=== PATIENT | male | born 1935 ===

== ENCOUNTER 2024-09-10 13:36 | Emergency (ER) | payer OTHER ==
[2024-09-10] MEDS ORDERED: LIDOCAINE 2% W/EPI 1:200,000 MPF 20 ML VIAL IM ONE (15:30)
[2024-09-10] MEDS ORDERED: TDAP (DIPHTH,PERTUSS(ACELL),TET VAC) 0.5 ML VIAL IMVAC ONE (15:31)
--- NOTE | 2024-09-10 15:31 | RAD REPORT ---
EXAM: CT Head Brain Wo Cont HISTORY: head injury COMPARISON: None TECHNIQUE: Multiple contiguous axial images were obtained for a CT of the brain without contrast. Sag ittal and coronal reformats were performed. One or more of the following dose reduction techniques were used: Automated exposure control, adjus tment of the mA and kV according to patient size, and iterative reconstruction. Unless otherwise specified, incidental findings do not require dedicated imaging follow-up. FINDINGS: No evidence of hydrocephalus, intracranial hemorrhage, or extra-axial fluid collection. Mild brain atrophy with mild periventricular and deep white matter chronic microvascular ischemic ch anges present. The calvarium is intact. Left frontal scalp swelling and hematoma. The visualized paranasal sinuses a nd mastoid air cells are essentially clear. IMPRESSION: No evidence of acute intracranial abnormality. Left frontal scalp swelling and hematoma.
--- NOTE | 2024-09-10 15:56 | ER ---
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 abrasions to left me1 forehead and cheek and left nare, bilateral palms of hands and feet. No LOC. c/o pain 2/10. Coronavirus screen: Vaccine status: Patient reports receiving the 2nd dose of the covid vaccine. Ebola Screen: No symptoms or risks identified at this time. Initial Sepsis Screen: Does the patient meet any 2 criteria? No. Patient's initial sepsis screen is negative. Does the patient have a suspected source of infection? No. Patient's initial sepsis screen is negative. Risk Assessment: Do you want to hurt yourself or someone else? Patient reports no desire to harm self or others. Onset of symptoms was September 10, 2024 at 13:30. 13:55 [place] [facility] Acuity: YANIQUE 3 me1 Historical: - Allergies: 13:59 No Known Allergies; me1 - PMHx: 13:59 Diabetes mellitus; Hypertensive disorder; enlarged prostate; me1 - PSHx: 13:59 cataract surgery bilateral; me1 - Immunization history:: Last tetanus immunization: > 10 years ago. - Infectious Disease History:: Denies. - Social history:: Smoking status: Patient/guardian denies using tobacco, but has a distant history of tobacco abuse. Vital Signs: 13:55 BP 130 / 64; Pulse 96; Resp 18; Temp 98.6; Pulse Ox 98.6% ; Weight 88.45 kg; Height 5 me1 ft. 9 in. ; Pain 2/10; 13:55 Body Mass Index 28.80 (88.45 kg, 175.26 cm) me1 13:55 Pain Scale: Adult nh1 ED Course: 13:42 Patient arrived in ED. cj3 13:46 Gaston Ornelas MD is Attending Physician. ec2 13:59 Triage completed. me1 13:59 Arm band placed on Patient placed in waiting room. me1 14:12 CT Head Brain wo Cont In Process Unspecified. EDMS 15:39 Val Kilgore, RN is Primary Nurse. iw Administered Medications: 15:30 Drug: Lidocaine-Epinephrine Infiltration -2 % (1:100,000) 10 ml Infiltration once; to iw bedside Route: Infiltration; 16:00 Drug: Boostrix Tdap IM 0.5 ml IM once; as a single dose Route: IM; Site: left deltoid; iw 16:15 Follow up: Response: No adverse reaction iw Outcome: 15:56 Discharge ordered by . ec2 16:41 Patient left the ED. iw Signatures: Dispatcher [employer] Val Dempsey, RN RN iw Denia Chau RN RN me1 Gaston Ornelas MD MD ec2 Jenny Tolentino 3
--- NOTE | 2024-09-10 15:56 | EDPHYS ---
Physician Documentation [facility] Name: Wes Rodriguez Age: 89 yrs Sex: Male : 1935 Arrival Date: 09/10/2024 Time: 13:36 Bed 25 Private MD: ED Physician Gaston Ornelas HPI: 09/10 14:01 This 89 yrs old Male presents to ER via Ambulatory with complaints of Fall ec2 Injury. 14:01 Patient arrives today for evaluation after a ground-level fall. Patient had fallen and ec2 injured his left face, sustained a laceration. No LOC, no blood thinners. Unsure of last tetanus shot.. Historical: - Allergies: 13:59 No Known Allergies; me1 - PMHx: 13:59 Diabetes mellitus; Hypertensive disorder; enlarged prostate; me1 - PSHx: 13:59 cataract surgery bilateral; me1 - Immunization history:: Last tetanus immunization: > 10 years ago. - Infectious Disease History:: Denies. - Social history:: Smoking status: Patient/guardian denies using tobacco, but has a distant history of tobacco abuse. ROS: 14:01 Constitutional: as per hpi ec2 Exam: 14:01 Constitutional: GEN: NAD Head: atraumatic Eyes: EOMI Ears: External ears are ec2 normal. CV: regular rate LUNGS: no respiratory distress ABD: non-distended SKIN: 2 cm laceration to the left upper eyebrow, half centimeter laceration to the left cheek MSK: no evidence of trauma Vital Signs: 13:55 BP 130 / 64; Pulse 96; Resp 18; Temp 98.6; Pulse Ox 98.6% ; Weight 88.45 kg; Height 5 me1 ft. 9 in. ; Pain 2/10; 13:55 Body Mass Index 28.80 (88.45 kg, 175.26 cm) me1 13:55 Pain Scale: Adult me1 Laceration: 15:58 Wound Repair of 3cm ( 1.2in ) subcutaneous laceration to face. Distal ec2 neuro/vascular/tendon intact. Anesthesia: Local anesthetic administered with 3 mls of 2% lidocaine. Wound prep: Moderate cleansing by me. Skin closed with 3 3-0 Silk using simple sutures and sterile technique. Patient tolerated well. 15:59 Wound Repair of 2cm ( 0.8in ) subcutaneous laceration to right hand. Distal ec2 neuro/vascular/tendon intact. Anesthesia: Local anesthetic administered with 1 mls of 2% lidocaine. Wound prep: Moderate cleansing by me. Skin closed with 1 4-0 Silk using simple sutures and sterile technique. Skin closed with 3 4-0 Prolene using simple sutures and sterile technique. Patient tolerated well. 15:59 Wound Repair of .5cm ( 0.2in ) subcutaneous laceration to Left Cheek. Distal ec2 neuro/vascular/tendon intact. Anesthesia: Local anesthetic administered with 2 mls of 2% lidocaine. Wound prep: Moderate cleansing. Skin closed with 4-0 Silk using simple sutures and sterile technique. Patient tolerated well. MDM: 13:54 Medical Screening Exam initiated ec2 14:02 Data reviewed: vital signs, nurses notes. ED course: Patient arrives today for ec2 evaluation after a ground-level fall. Examination yields skin findings above. Will obtain CT scan of the head given the patient's age, will anesthetize area and perform laceration repair.. 16:01 ED course: CT imaging negative. I repaired the left eyebrow laceration with 3 stitches. ec2 I repaired the right hand laceration with 3 stitches, repaired the left cheek laceration with a single stitch. Patient discharged home instructed follow-up PCP for removal return here.. 09/10 14:00 Order name: CT Head Brain wo Cont; Complete Time: 15:32 ec2 09/10 14:00 Order name: Wound Care; Complete Time: 16:25 ec2 Administered Medications: 15:30 Drug: Lidocaine-Epinephrine Infiltration -2 % (1:100,000) 10 ml Infiltration once; to iw bedside Route: Infiltration; 16:00 Drug: Boostrix Tdap IM 0.5 ml IM once; as a single dose Route: IM; Site: left deltoid; iw 16:15 Follow up: Response: No adverse reaction iw Disposition Summary: 09/10/24 15:56 Discharge Ordered Condition: Stable ec2 Diagnosis - Laceration to the Left Cheeck, Laceration to the Left Upper Eyebrow ec2 - Laceration to the Left Cheeck, Laceration to the Left Upper Eyebrow, Right Hand ec2 Laceration Followup: ec2 - With: Private Physician - When: - Reason: Re-evaluation by your physician Discharge Instructions: - Discharge Summary Sheet ec2 - Facial Laceration, [id number] ec2 Forms: - Medication Reconciliation Form ec2 - Antibiotic Education ec2 - Prescription Opioid Use ec2 - Patient Portal Instructions ec2 - Leadership Thank You Letter ec2 Signatures: Dispatcher [employer] Val Dempsey RN RN Denia Chau RN RN me1 Gaston Ornelas MD MD ec2 Corrections: (The following items were deleted from the chart) 16:01 15:59 Wound Repair of .5cm ( 0.2in ) subcutaneous laceration to right hand. Distal ec2 neuro/vascular/tendon intact. Anesthesia: Local anesthetic administered with 1 mls of 2% lidocaine. Wound prep: Moderate cleansing by me. Skin closed with 1 4-0 Silk using simple sutures and sterile technique. Patient tolerated well. ec2
[2024-09-10 16:49] VITALS: BP 130/64; TEMP 98.6
== END 2024-09-10 16:41 | disposition home or self-care (01) ==
LOC: ER 13:36
DX: S01.412A Laceration without foreign body of left cheek and temporomandibular area, initial encounter (principal); S01.81XA Laceration without foreign body of other part of head, initial encounter; S61.411A Laceration without foreign body of right hand, initial encounter; W18.30XA Fall on same level, unspecified, initial encounter
CPT/HCPCS: 12001; 12011; 12013; 70450; 96372; 99284